=== PATIENT | male | born 1985 | race Caucasian/White ===

== ENCOUNTER 2016-11-02 18:00 | Emergency (ER) | payer SELFPAY ==
[~2016-11-02] VITALS: Ht 175.3 cm; Wt 86.2 kg
[2016-11-02 18:21] VITALS: BP 167/89
[2016-11-02] MEDS ORDERED: DIPHTH,PERTUSS(ACELL),TET TOX 0.5 ML DISP.SYRIN. VAX IM ONE (19:00)
[2016-11-02] MEDS ORDERED: HYDROCODONE/APAP 5/325MG TABLET. PO ONE (19:00)
[2016-11-02] MEDS ORDERED: LIDOCAINE 1% / SOD BICARB 8.4% 20 ML VIAL. IJ ONE (19:00)
--- NOTE | 2016-11-02 19:08 | PHYS DOC ---
Past Medical History Past Medical History: No Pertinent History Past Surgical History: No Surgical History Alcohol Use: Rarely Drug Use: Marijuana Adult General Chief Complaint Chief Complaint: TESTICULAR PAIN OR INJURY HPI HPI Patient is a 31 year old male who presents with abscess to the right forearm for 5 days. Patient had a tattoo to on the right forearm within the last 2 weeks. Patient states the abscess has been draining on and off for the last 5 days. Patient is also complaining of bilateral testicular swelling for 5 days. Patient denies any concern for STDs. Denies any urgency frequency or dysuria. Denies any fever. Review of Systems Review of Systems Constitutional: Denies fever or chills [] Eyes: Denies change in visual acuity, redness, or eye pain [] HENT: Denies nasal congestion or sore throat [] Respiratory: Denies cough or shortness of breath [] Cardiovascular: No additional information not addressed in HPI [] GI: Denies abdominal pain, nausea, vomiting, bloody stools or diarrhea [] : Denies dysuria or hematuria [] Musculoskeletal: Denies back pain or joint pain [] Integument: Right forearm abscess, testicular swelling. Neurologic: Denies headache, focal weakness or sensory changes [] Endocrine: Denies polyuria or polydipsia [] Current Medications Current Medications Current Medications Medications (Trade) Dose Ordered Sig/Isaac Start Time Stop Time Status Last Admin Dose Admin Acetaminophen/ Hydrocodone Bitart (Lortab 5/325) 2 tab 1X ONCE 11/02/16 19:00 11/02/16 19:01 DC 11/02/16 19:32 2 TAB Azithromycin (Zithromax) 1,000 mg 1X ONCE 11/02/16 20:30 11/02/16 20:31 DC 11/02/16 20:50 1,000 MG Ceftriaxone Sodium (Rocephin Im) 250 mg 1X ONCE 11/02/16 20:30 11/02/16 20:31 DC 11/02/16 20:50 250 MG Diphtheria/ Tetanus/Acell Pertussis (Boostrix) 0.5 ml ONCE ONCE 11/02/16 19:00 11/02/16 19:01 DC 11/02/16 19:34 0.5 ML Doxycycline Hyclate (Vibra-Tab) 100 mg 1X ONCE 11/02/16 20:30 11/02/16 20:31 DC 11/02/16 20:50 100 MG Lidocaine/Sodium Bicarbonate (Buffered Lidocaine 1%) 20 ml 1X ONCE 11/02/16 19:00 11/02/16 19:01 DC 11/02/16 19:35 20 ML Allergies Allergies Allergies Coded Allergies Type Severity Reaction Last Updated Verified No Known Drug Allergies 11/09/13 No Physical Exam Physical Exam Constitutional: Well developed, well nourished, no acute distress, non-toxic appearance. [] HENT: Normocephalic, atraumatic, bilateral external ears normal, oropharynx moist, no oral exudates, nose normal. [] Eyes: PERRLA, EOMI, conjunctiva normal, no discharge. [] Neck: Normal range of motion, no tenderness, supple, no stridor. [] Cardiovascular:Heart rate regular rhythm, no murmur [] Lungs & Thorax: Bilateral breath sounds clear to auscultation [] Abdomen: Bowel sounds normal, soft, no tenderness, no masses, no pulsatile masses. [] Skin: Right forearm with an area of induration consistent with an abscess approximately 3 x 2 cm, the area has a scab on top of it, there is mild cellulitis around the abscess. The area is warm and tender to palpate and very fluctuant. Testicular exam Mild swelling to bilateral testicles, with diffuse redness. Exam difficult. Patient would not tolerate assessment of the testicles for any masses. Back: No tenderness, no CVA tenderness. [] Extremities: No tenderness, no cyanosis, no clubbing, ROM intact, no edema. [] Neurologic: Alert and oriented X 3, normal motor function, normal sensory function, no focal deficits noted. [] Psychologic: Affect normal, judgement normal, mood normal. [] Current Patient Data Vital Signs Vital Signs Date Time Temp Pulse Resp B/P Pulse Ox O2 Delivery O2 Flow Rate FiO2 11/02/16 19:32 18 98 Room Air 11/02/16 18:21 98.4 100 167/89 98.4 Lab Values Laboratory Tests Test 11/02/16 19:52 Urine Collection Type Unknown Urine Color Yellow Urine Clarity Clear Urine pH 6.0 Urine Specific [place] 1.020 Urine Protein Negativemg/dL (NEG-TRACE) Urine Glucose (UA) Negativemg/dL (NEG) Urine Ketones (Stick) Negativemg/dL (NEG) Urine Blood Negative (NEG) Urine Nitrite Negative (NEG) Urine Bilirubin Negative (NEG) Urine Urobilinogen Dipstick 0.2mg/dL (0.2 mg/dL) Urine Leukocyte Esterase Moderate (NEG) Urine RBC 0/HPF (0-2) Urine WBC >40/HPF (0-4) Urine Bacteria 0/HPF (0-FEW) Urine Mucus Mod/LPF EKG EKG [] Radiology/Procedures Radiology/Procedures []PROCEDURE: TESTICULAR/SCROTUM PROCEDURE Scrotal ultrasound. HISTORY Bilateral scrotal pain. No known injury. Symptoms for 1 week. COMPARISON None. FINDINGS Right testicle measures 4.3 x 2.5 x 2.2 centimeters. Left testicle measures 4.1 x 2.9 x 2.2 centimeters. Both testicles are without evidence of mass. The right epididymis demonstrates a few small cysts versus spermatoceles measuring up to 2 millimeters. Left epididymis is without focal lesion. There is a small left hydrocele. Doppler imaging demonstrates vascularity to both testicles. There is no evidence of testicular torsion. The left testicle appears hypervascular relative to the right. Both epididymides appear hypervascular. Findings may indicate bilateral epididymitis, possibly with left orchitis. IMPRESSION 1. Bilateral epididymides are hypervascular as well as the left testicle. Findings could represent bilateral epididymitis and left orchitis. 2. Small left hydrocele. 3. No evidence of testicular mass or injury. Electronically signed by: Melvin Hassan MD (Nov 02, 2016 20:04:11) DICTATED and SIGNED BY: MELVIN HASSAN MD DATE: 11/02/162003 CC: GARCIA NUNEZ APRN; NO PCP ~ Indication: abscess of the right forearm Procedure: The patient was positioned appropriately. Local anesthesia was 1% buffered lidocaine. An incision was then made over the apex of the lesion and large amount of bloody purulent material was expressed. The drainage cavity was irrigated and covered with sterile gauze. The patients tetanus status updated as needed. The patient tolerated the procedure well. Complications: none. procedure done by me Course & Med Decision Making Course & Med Decision Making Pertinent Labs and Imaging studies reviewed. (See chart for details) Patient is in the ED with right forearm abscesses as well as bilateral testicular swelling. Tom was given tetanus in the ED, the forearm abscess was drained as noted in procedures. Testicular ultrasound was positive for epididymitis bilaterally and left otitis. Patient was also noted to have left hydrocele. Urine was also noted for infection. Patient was treated for STD, he was given azithromycin, Rocephin, and started on doxycycline in the ED and discharged with doxycycline. He was educated on safe sex practices especially the need to use protection, recommended he contacts all his sex partners let them know he was treated for STDs and ask them to seek treatment too. F/u with urologist in one week. [employer] Disclaimer Dragon Disclaimer This electronic medical record was generated, in whole or in part, using a voice recognition dictation system. Departure Departure Impression: Primary Impression: Abscess of forearm, right Additional Impressions: Orchitis of left testicle Epididymitis, bilateral UTI (urinary tract infection) Disposition: 01 HOME, SELF-CARE Condition: STABLE Referrals: NO PCP (PCP) PHYLICIA VALLES DO follow up with him in one week Patient Instructions: Abscess, Care After, Epididymitis, Orchitis Additional Instructions: You were seen for an abscess of the right forearm, you also have epididymitis and orchitis. this infections typically occurs to patient's who have sexually transmitted diseases. Please ensure you complete your antibiotics. Follow-up with the provided urologist as soon as he can. Contact all your sex partners, let them know you were treated for STDs, ask them to seek treatment too, use protection at all times. Scripts Hydrocodone/Apap 5-325 ([place] 5-325 Tablet)1 Each Tablet1-2 Tab PO Q4-6HRS #10 TAB Prov:GARCIA NUNEZ APRN 11/02/16 Doxycycline Hyclate 100 Mg Tablet1 Tab PO BID #20 TAB Prov:GARCIA NUNEZ APRN 11/02/16 Problem Qualifiers Additional Impressions: UTI (urinary tract infection) Urinary tract infection type: acute cystitis Hematuria presence: without hematuria Qualified Code: N30.00 - Acute cystitis without hematuria GARCIA NUNEZ APRN Nov 02, 2016 19:08
[2016-11-02 20:00] LABS: BILIRUBIN,URINE NEGATIVE (NEG); GLUCOSE,URINE NEGATIVE (NEG); NITRITE,URINE NEGATIVE (NEG); PROTEIN,URINE NEGATIVE (NEG-TRACE); UROBILINOGEN,URINE 0.2 mg/dL (0.2 mg/dL)
--- NOTE | 2016-11-02 20:05 | RAD ---
PROCEDURE Scrotal ultrasound. HISTORY Bilateral scrotal pain. No known injury. Symptoms for 1 week. COMPARISON None. FINDINGS Right testicle measures 4.3 x 2.5 x 2.2 centimeters. Left testicle measures 4.1 x 2.9 x 2.2 centimeters. Both testicles are without evidence of mass. The right epididymis demonstrates a few small cysts versus spermatoceles measuring up to 2 millimeters. Left epididymis is without focal lesion. There is a small left hydrocele. Doppler imaging demonstrates vascularity to both testicles. There is no evidence of testicular torsion. The left testicle appears hypervascular relative to the right. Both epididymides appear hypervascular. Findings may indicate bilateral epididymitis, possibly with left orchitis. IMPRESSION 1. Bilateral epididymides are hypervascular as well as the left testicle. Findings could represent bilateral epididymitis and left orchitis. 2. Small left hydrocele. 3. No evidence of testicular mass or injury. Electronically signed by: Melvin Hassan MD (Nov 02, 2016 20:04:11)
[2016-11-02 20:15] LABS: BACTERIA,URINE 0 /HPF (0-FEW); RBC,URINE 0 /HPF (0-2); WBC,URINE >40 /HPF (0-4)
[2016-11-02] MEDS ORDERED: DOXYCYCLINE HYCLATE 100 MG TABLET PO ONE (20:30)
[2016-11-02] MEDS ORDERED: CEFTRIAXONE IM 250 MG VIAL. IM ONE (20:30)
[2016-11-02] MEDS ORDERED: AZITHROMYCIN 250 MG TABLET PO ONE (20:30)
[2016-11-02] MEDS ORDERED: DOXY100T PO (21:19)
[2016-11-02] MEDS ORDERED: HYDR-971 PO (21:19)
--- NOTE | 2016-11-05 16:34 | VNOTE ---
CALL BACK NOTE CALL BACK Received test results from patient's visit on November 02. The GC chlamydia PCR performed was positive for chlamydia. Upon review of patient's chart from his visit on November 02, he had received Rocephin, easy azithromycin here in the emergency department. Patient was also started on doxycycline for home treatment for his discharge diagnosis of epididymitis. I called [phone]. A female answer the phone. She did take a message to have patient call this facility in reference to test results. VENITA SIDDIQUI Nov 05, 2016 16:34
--- NOTE | 2016-11-06 11:25 | VNOTE ---
CALL BACK NOTE CALL BACK Patient called back, gave him results he was positive for chlamydia he was treated educated him on STDs and the importance of using protection. GARCIA NUNEZ APRN Nov 06, 2016 11:25
== END 2016-11-02 21:34 | disposition home or self-care (01) ==
LOC: ER 18:00
DX: L02.413 Cutaneous abscess of right upper limb (principal); N30.00 Acute cystitis without hematuria; N45.1 Epididymitis; N43.3 Hydrocele, unspecified; N45.2 Orchitis; F12.10 Cannabis abuse, uncomplicated
CPT/HCPCS: 10060; 76870; 81001; 87491; 87591; 90471; 90715; 96372; 99285; J0696; Q0144